=== PATIENT | male | born 1950 | race Caucasian/White ===

== ENCOUNTER 2020-02-18 08:09 | Outpatient (CLI) | payer MEDICARE, OTHER, SELFPAY ==
--- NOTE | ~2020-02-18 | US_ITS ---
EXAMINATION: US aorta [facility] DATE: 02/18/2020 09:01 INDICATION: Abdominal aortic aneurysm screening TECHNIQUE: Grayscale, color Doppler, and pulsed Doppler images of the aorta and common iliac arteries were obtained. COMPARISON: None. FINDINGS: The proximal aorta measures 2.1 cm. The mid aorta measures 1.7 cm. The distal aorta measures 1.2 cm. The right common iliac artery measures 13 mm. The left common iliac artery measures 9 mm. IMPRESSION: 1. Normal caliber abdominal aorta. Reviewed, dictated and finalized at location A.
== END 2020-02-18 08:10 | disposition home or self-care (01) ==
PROVIDERS: PCP Family Medicine; Visit Provider Physician Assistant
DX: Z13.6 Encounter for screening for cardiovascular disorders (principal)
CPT/HCPCS: 76706

== ENCOUNTER 2020-08-18 09:47 | Outpatient (CLI) | payer MEDICARE, OTHER, SELFPAY ==
[2020-08-18 10:33] LABS: Alanine Aminotransferase 32 U/L (4-50); Albumin Level 4.5 g/dL (3.5-5.1); Alkaline Phosphatase 67 U/L (38-126); Anion Gap 5 mmol/L (8-16); Aspartate Amino Transferase 37 U/L (17-59); Bilirubin,Total 0.9 mg/dL (0.2-1.3); Blood Urea Nitrogen 28 mg/dL (9-20); Calcium 9.5 mg/dL (8.4-10.2); Carbon Dioxide 31 mmol/L (22-30); Chloride 100 mmol/L (98-107); Estimated Glomerular Filt Rate 55; Glucose 103 mg/dL (75-110); Potassium 4.4 mmol/L (3.4-5.0); Sodium 136 mmol/L (137-145)
== END 2020-08-18 09:48 | disposition home or self-care (01) ==
LOC: ANHLAB 09:49
PROVIDERS: PCP Family Medicine; Visit Provider Physician Assistant
DX: I10 Essential (primary) hypertension (principal)
CPT/HCPCS: 36415; 80053

== ENCOUNTER → 2021-03-05 10:25 | Outpatient (CLI) | payer MEDICARE, OTHER, SELFPAY ==
--- NOTE | ~2021-03-05 | XR_ITS ---
EXAMINATION: XR finger 1st RT min 2V EXAM DATE: 03/05/2021 10:50 INDICATION: M79.646 - Pain in unspecified finger(s). Pt c/o pain in right 1st digit IP joint space, popping out of place on and off for 1 year, no trauma, no fx., no surg. TECHNIQUE: Right 1st finger frontal, lateral and oblique projections obtained and reviewed. There is no prior study for comparison. FINDINGS: There are no acute right 1st finger fractures or dislocations identified. There is no subc utaneous gas. The soft tissue is unremarkable. There are no radiopaque foreign bodies. There is i nterphalangeal and 1st metacarpophalangeal primary osteoarthritis. IMPRESSION: Mild osteoarthritis. Reviewed, dictated and finalized at location A. IMPRESSION: Mild osteoarthritis.
== END ==
PROVIDERS: PCP Family Medicine; Visit Provider Physician Assistant
DX: M19.041 Primary osteoarthritis, right hand (principal)
CPT/HCPCS: 73140

== ENCOUNTER 2022-08-06 03:42 | Day surgery (SDC) | payer MEDICARE, OTHER, SELFPAY ==
[2022-07-19 15:02] VITALS: BMI 30.9
--- NOTE | 2022-08-05 14:16 | PM.HPGS ---
History of Present Illness History of Present Illness Consent: Risks, benefits, and alternatives have been discussed and questions answered. Patient agrees to proceed with procedure. Chief complaint: neoplasm screening Narrative: Liborio Jean is a 72 year old male Referred for colon cancer screening. His last colonoscopy was 10 years ago. Review of Systems Review of Systems: All systems reviewed & are unremarkable except as noted in HPI and below PMFSH Past Medical History Medical History Essential (primary) hypertension Mixed hyperlipidemia Obesity Surgical History Surgical History H/O left inguinal hernia repair History of appendectomy Family History Family History Father Family history of elevated blood lipids Family history of coronary artery disease Mother Family history of malignant neoplasm of bone Social History Social History Years smoked: 35 Smoking status: Former smoker Second hand tobacco smoke exposure: No Smoking end date: 07/11/06 Alcohol intake: current Drinks per week: 4 Substance use: never Substance use type: does not use Living arrangements: with family Occupation/Education: occupation 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 Gender identity (if verbalized by the patient): Male Sexual Orientation (if Verbalized by the Patient): Straight or Heterosexual Meds Home Medications and Allergies Home Medications Medication Instructions Recorded Confirmed Type omeprazole 20 mg capsule,delayed See Rx Instructions .Route 05/10/22 08/06/22 Rx release .COMPLEX #90 caps simvastatin 40 mg tablet See Rx Instructions .Route 05/10/22 08/06/22 Rx .COMPLEX #90 tabs lisinopril 10 See Rx Instructions .Route 06/10/22 08/06/22 Rx mg-hydrochlorothiazide 12.5 mg .COMPLEX #90 tabs tablet Allergies Allergy/AdvReac Type Severity Reaction Status Date / Time prednisone Allergy Other Verified 08/06/22 06:27 Exam Const: General: alert Orientation/consciousness: patient oriented x3 Resp: Auscultation: clear to auscultation bilaterally Cardio: Rhythm: regular rhythm GI: GI Palp: Yes Soft to palpation and No Tenderness to palpation present (GI) Neuro: General: patient oriented x3 Assessment and Plan Assessment and plan (1) Colon cancer screening: Code(s): Z12.11 - Encounter for screening for malignant neoplasm of colon Status: Acute Assessment and Plan: Colonoscopy with possible biopsy or polypectomy or cautery or injection of substances.
--- NOTE | 2022-08-05 15:59 | P.PNAN_ITS ---
Anes - Initial Pre Proc Eval Procedure: Operation Date: 08/06/22 07:30 Proposed Procedures p Screening Colonoscopy - Madi Izquierdo MD Date/Time: 08/05/22 15:59 Surgeon: Madi Izquierdo MD Pre Op Diagnosis: neoplasm screening Patient Data Age: 72 Gender: M Height: 1.63 m Weight: 81.8 kg Allergies Allergy/AdvReac Type Severity Reaction Status Date / Time prednisone Allergy Other Verified 08/06/22 06:27 Home Medications Medication Instructions Recorded Confirmed Type omeprazole 20 mg capsule,delayed See Rx Instructions .Route 05/10/22 08/06/22 Rx release .COMPLEX #90 caps simvastatin 40 mg tablet See Rx Instructions .Route 05/10/22 08/06/22 Rx .COMPLEX #90 tabs lisinopril 10 See Rx Instructions .Route 06/10/22 08/06/22 Rx mg-hydrochlorothiazide 12.5 mg .COMPLEX #90 tabs tablet Patient hx anesthesia problems: none Family hx anesthesia problems: none Results Review: All pre-operative results and documents have been reviewed as part of the pre- operative evaluation. [facility] Past Medical History Medical History Essential (primary) hypertension Mixed hyperlipidemia Obesity Surgical History Surgical History H/O left inguinal hernia repair History of appendectomy Family History Family History Father Family history of elevated blood lipids Family history of coronary artery disease Mother Family history of malignant neoplasm of bone Social History Social History Years smoked: 35 Smoking status: Former smoker Second hand tobacco smoke exposure: No Smoking end date: 07/11/06 Alcohol intake: current Drinks per week: 4 Substance use: never Substance use type: does not use Living arrangements: with family Occupation/Education: occupation 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 Gender identity (if verbalized by the patient): Male Sexual Orientation (if Verbalized by the Patient): Straight or Heterosexual Anes - Eval Final PreProcedure Day of Procedure 08/05/22 15:59 Patient weight: obese Heart: regular rate and rhythm Lungs: clear to auscultation and normal air movement Airway: Mallampati scale class II Neurological: alert and oriented Last oral intake: >/= 8 hours ASA classification: III Emergent: no Anesthetic plan: proceed Anesthesia type and monitoring: general GIVS Results Review: All pre-operative results and documents have been reviewed as part of the pre- operative evaluation. Informed Consent: The patient's anesthetic plan and its attendant risks and benefits were discussed with the patient/family/POA. Questions were solicited and answers provided to the satisfaction of the patient/family/POA.
[2022-08-06 06:26] VITALS: BP 142/84; PULSE 72; RESP 18; TEMP 36.2; O2SAT 97
[2022-08-06] MEDS: LACTATED RINGERS 1,000 ML 150 ML IV CONT (06:39)
[2022-08-06] MEDS: SIMETHICONE ORAL SUSPENSION 20 MG/0.3 ML 30 ML BOTTLE 0.6 ML IRRIGATION (07:38)
[2022-08-06 07:51] VITALS: BP 105/64; PULSE 80; RESP 18; TEMP 36.2; O2SAT 97
[2022-08-06 08:01] VITALS: BP 127/83; PULSE 72; RESP 18; TEMP 36.2; O2SAT 100
[2022-08-06 08:11] VITALS: BP 131/80; PULSE 70; RESP 18; TEMP 36.2; O2SAT 100
== END 2022-08-06 08:17 | disposition home or self-care (01) ==
PROVIDERS: PCP Family Medicine; Visit Provider Internal Medicine Gastroenterology
PROC: 0DJD8ZZ Inspection of Lower Intestinal Tract, Via Natural or Artificial Opening Endoscopic (ICD-10-PCS; CPT 45378; principal; 2022-08-06 07:30)
DX: Z12.11 Encounter for screening for malignant neoplasm of colon (principal); K57.30 Diverticulosis of large intestine without perforation or abscess without bleeding; D12.3 Benign neoplasm of transverse colon; K64.8 Other hemorrhoids; E78.2 Mixed hyperlipidemia; I10 Essential (primary) hypertension; E66.9 Obesity, unspecified; Z68.30 Body mass index [BMI] 30.0-30.9, adult; Z87.891 Personal history of nicotine dependence
CPT/HCPCS: 45380; 88305; J2704; J7120

== ENCOUNTER 2022-11-22 08:21 | Outpatient (CLI) | payer MEDICARE, OTHER, SELFPAY ==
[2022-11-22 08:50] LABS: Hematocrit 45.3 % (42.0-52.0); Hemoglobin 15.1 g/dL (14.0-18.0); Mean Corpuscular HGB Conc 33.3 g/dl (32-36); Mean Corpuscular Hemoglobin 30.9 pg (26-34); Mean Corpuscular Volume 92.8 fl (80-100); Mean Platelet Volume 8.2 fl (7.4-10.4); Platelet Count Result 244 k/mm3 (150-375); Red Blood Count 4.88 M/mm3 (4.6-6.20); Red Cell Distribution Width 11.9 % (11.5-14.5); White Blood Count 6.5 K/mm3 (4.5-10.0)
[2022-11-22 08:57] LABS: Alanine Aminotransferase 35 U/L (6-50); Albumin Level 4.5 g/dL (3.5-5.1); Alkaline Phosphatase 66 U/L (38-126); Anion Gap 7 mmol/L (8-16); Aspartate Amino Transferase 33 U/L (17-59); Bilirubin,Total 0.8 mg/dL (0.2-1.3); Blood Urea Nitrogen 21 mg/dL (9-20); Calcium 9.2 mg/dL (8.4-10.2); Carbon Dioxide 32 mmol/L (22-30); Chloride 96 mmol/L (98-107); Cholesterol 196 mg/dL (0-200); Estimated Glomerular Filt Rate 60; Glucose 88 mg/dL (65-110); HDL Direct 54 mg/dL; Potassium 3.7 mmol/L (3.4-5.0); Sodium 135 mmol/L (137-145); Triglycerides 185 mg/dL (<150)
[2022-11-22 08:58] LABS: Appearance Urine Clear (Clear); Bilirubin Urine Negative (Negative); Blood Urine Negative (Negative); Color Urine Yellow (Yellow); Glucose Urine UA Negative (Negative); Ketones Urine Negative (Negative); Leukocyte Esterase Ur Negative LEU/UL (NEGATIVE); Nitrate Urine Negative (Negative); Protein Urine Negative (Negative); Specific Grav Ur 1.006 (1.001-1.035); Urobilinogen Urine 0.2 mg/dL (<2.0)
[2022-11-22 09:01] LABS: Hemoglobin A1C 5.6 % (<5.7)
[2022-11-22 09:08] LABS: LDL Cholesterol Direct 107 mg/dL
[2022-11-22 09:27] LABS: Add Urine Microscopic? NO
[2022-11-22 09:28] LABS: Prostate Specific Antigen 1.8 ng/mL (< OR = 4.0)
== END 2022-11-22 08:22 | disposition home or self-care (01) ==
PROVIDERS: PCP Family Medicine; Visit Provider Family Medicine
DX: E78.2 Mixed hyperlipidemia (principal); R73.01 Impaired fasting glucose; R35.1 Nocturia; I10 Essential (primary) hypertension
CPT/HCPCS: 36415; 80053; 80061; 81003; 83036; 84153; 84443; 85027

== ENCOUNTER 2023-06-01 11:37 | Outpatient (CLI) | payer MEDICARE, OTHER, SELFPAY ==
[2023-06-01 12:35] LABS: Basophils Percent Auto 0.5 % (0.2-1.2); Eosinophils Absolute Auto 0.1 K/mm3 (0-0.3); Eosinophils Percent Auto 0.6 % (0-4.4); Hemoglobin 14.2 g/dL (14.0-18.0); Immature Granulocyte Absolute 0.04 K/mm3 (0.00-0.031); Immature Granulocyte Percent A 0.5 % (0-0.5); Lymphocytes Percent Auto 10.4 % (18.3-44.2); Mean Corpuscular HGB Conc 32.3 g/dl (32-36); Mean Corpuscular Hemoglobin 30.5 pg (26-34); Mean Corpuscular Volume 94.4 fl (80-100); Mean Platelet Volume 8.3 fl (7.4-10.4); Monocytes Absolute Auto 0.8 K/mm3 (0.1-0.6); Monocytes Percent Auto 8.8 % (2.6-8.5); Neutrophils Absolute Auto 6.9 K/mm3 (1.3-6.7); Neutrophils Percent Auto 79.2 % (45.5-73.1); Platelet Count Result 220 k/mm3 (150-375); Red Blood Count 4.66 M/mm3 (4.6-6.20); Red Cell Distribution Width 11.8 % (11.5-14.5); White Blood Count 8.6 K/mm3 (4.5-10.0)
[2023-06-01 12:42] LABS: Alanine Aminotransferase 29 U/L (6-50); Albumin Level 4.5 g/dL (3.5-5.1); Alkaline Phosphatase 68 U/L (38-126); Anion Gap 13 mmol/L (8-16); Aspartate Amino Transferase 32 U/L (17-59); Bilirubin,Total 1.1 mg/dL (0.2-1.3); Blood Urea Nitrogen 28 mg/dL (9-20); Calcium 9.4 mg/dL (8.4-10.2); Carbon Dioxide 24 mmol/L (22-30); Chloride 99 mmol/L (98-107); Cholesterol 178 mg/dL (0-200); Estimated Glomerular Filt Rate 40; Glucose 96 mg/dL (65-110); HDL Direct 51 mg/dL; Sodium 136 mmol/L (137-145); Triglycerides 101 mg/dL (<150)
[2023-06-01 12:53] LABS: LDL Cholesterol Direct 93 mg/dL
[2023-06-01 13:11] LABS: Thyroid Stimulating Hormone 0.787 uIU/mL (0.465-4.680)
[2023-06-01 13:28] LABS: Appearance Urine Clear (Clear); Bacteria Urine None Seen /hpf; Bilirubin Urine Negative (Negative); Blood Urine Negative (Negative); Color Urine Yellow (Yellow); Glucose Urine UA Negative (Negative); Hyaline Casts Urine Present /lpf; Ketones Urine Trace mg/dL (Negative); Leukocyte Esterase Ur Negative LEU/UL (NEGATIVE); Need Manual Microscopic Reviewed; Nitrate Urine Negative (Negative); Non Pathogenic Casts >20; Protein Urine 1+ mg/dL (Negative); RBC Urine 0-2 /hpf (0-2); Specific Grav Ur 1.022 (1.001-1.035); Squamous Epithelial Cell Urine Moderate /hpf (Few); Urobilinogen Urine 0.2 mg/dL (<2.0); WBC Urine 0-5 /hpf (0-3); pH Urine 5.5 (5.0-9.0)
[2023-06-01 13:36] LABS: Add Urine Microscopic? YES
[2023-06-01 14:07] LABS: Hemoglobin A1C 5.5 % (<5.7)
== END 2023-06-01 11:38 | disposition home or self-care (01) ==
PROVIDERS: PCP Family Medicine; Visit Provider Family Medicine
DX: R35.1 Nocturia (principal); E78.2 Mixed hyperlipidemia; I10 Essential (primary) hypertension; R73.01 Impaired fasting glucose
CPT/HCPCS: 36415; 80053; 80061; 81001; 83036; 84153; 84443; 85025

== ENCOUNTER 2023-06-23 09:00 | Outpatient (CLI) | payer MEDICARE, OTHER, SELFPAY ==
[2023-06-23 09:39] LABS: Alanine Aminotransferase 26 U/L (6-50); Albumin Level 4.4 g/dL (3.5-5.1); Alkaline Phosphatase 65 U/L (38-126); Anion Gap 6 mmol/L (8-16); Aspartate Amino Transferase 29 U/L (17-59); Bilirubin,Total 0.8 mg/dL (0.2-1.3); Blood Urea Nitrogen 27 mg/dL (9-20); Calcium 9.2 mg/dL (8.4-10.2); Carbon Dioxide 31 mmol/L (22-30); Chloride 100 mmol/L (98-107); Estimated Glomerular Filt Rate 54; Glucose 98 mg/dL (65-110); Potassium 4.3 mmol/L (3.4-5.0); Sodium 137 mmol/L (137-145)
== END 2023-06-23 09:01 | disposition home or self-care (01) ==
PROVIDERS: PCP Family Medicine; Visit Provider Family Medicine
DX: R79.89 Other specified abnormal findings of blood chemistry (principal)
CPT/HCPCS: 36415; 80053

== ENCOUNTER 2023-11-16 15:08 | Outpatient (CLI) | payer MEDICARE, OTHER, SELFPAY ==
--- NOTE | ~2023-11-16 | XR_ITS ---
EXAMINATION: XR chest 2V DATE: 11/16/2023 15:21 INDICATION: Cough. TECHNIQUE: Frontal and lateral views of the chest were obtained. COMPARISON: Chest 2 views 02/10/2015 FINDINGS: There is no pneumonia, pleural effusion, or pneumothorax. The heart size is normal. IMPRESSION: 1. No acute cardiopulmonary disease. Reviewed, dictated and finalized at location A.
[2023-11-16 15:43] LABS: Basophils Percent Auto 0.3 % (0.2-1.2); Hematocrit 44.2 % (42.0-52.0); Hemoglobin 15.1 g/dL (14.0-18.0); Immature Granulocyte Absolute 0.05 K/mm3 (0.00-0.031); Immature Granulocyte Percent A 0.6 % (0-0.5); Lymphocytes Percent Auto 5.7 % (18.3-44.2); Mean Corpuscular HGB Conc 34.2 g/dl (32-36); Mean Corpuscular Hemoglobin 31.1 pg (26-34); Mean Corpuscular Volume 90.9 fl (80-100); Mean Platelet Volume 8.3 fl (7.4-10.4); Monocytes Absolute Auto 0.9 K/mm3 (0.1-0.6); Monocytes Percent Auto 10.2 % (2.6-8.5); Neutrophils Absolute Auto 7.3 K/mm3 (1.3-6.7); Neutrophils Percent Auto 83.2 % (45.5-73.1); Platelet Count Result 216 k/mm3 (150-375); Red Blood Count 4.86 M/mm3 (4.6-6.20); Red Cell Distribution Width 11.9 % (11.5-14.5); White Blood Count 8.7 K/mm3 (4.5-10.0)
[2023-11-16 16:25] LABS: Influenza A QL RT-PCR Negative (Negative); Influenza B QL RT-PCR Negative (Negative); RSV RNA, RT-PCR Negative (Negative); SARS-CoV-2 RNA PCR Negative (Negative)
== END 2023-11-16 15:09 | disposition home or self-care (01) ==
LOC: ANHIMG 15:10
PROVIDERS: PCP Family Medicine; Visit Provider Family Medicine
DX: R05.9 Cough, unspecified (principal); R50.9 Fever, unspecified
CPT/HCPCS: 36415; 71046; 85025; 87637

== ENCOUNTER 2023-11-17 11:21 | Outpatient (CLI) | payer MEDICARE, OTHER, SELFPAY ==
[2023-11-17 11:50] LABS: Appearance Urine Clear (Clear); Bacteria Urine None Seen /hpf; Bilirubin Urine Negative (Negative); Blood Urine Negative (Negative); Color Urine Yellow (Yellow); Glucose Urine UA Negative (Negative); Ketones Urine Negative (Negative); Leukocyte Esterase Ur Negative LEU/UL (Negative); Nitrate Urine Negative (Negative); Protein Urine Trace mg/dL (Negative); RBC Urine 0-2 /hpf (0-2); Specific Grav Ur 1.013 (1.001-1.035); Squamous Epithelial Cell Urine None Seen /hpf (Few); WBC Urine 0-5 /hpf (0-3)
[2023-11-17 11:54] LABS: Add Urine Microscopic? YES
== END 2023-11-17 11:22 | disposition home or self-care (01) ==
PROVIDERS: PCP Family Medicine; Visit Provider Family Medicine
DX: N39.0 Urinary tract infection, site not specified (principal)
CPT/HCPCS: 81001

== ENCOUNTER 2024-11-29 03:12 | Day surgery (SDC) | payer MEDICARE, OTHER, SELFPAY ==
[2024-11-28 15:32] VITALS: BMI 31.4
--- NOTE | 2024-11-28 15:47 | PC.NURSE ---
Report to the Outpatient Waiting Room, entrance under the green pavilion located off [facility], at time ___11:00AM____ on date __11/29/24 . Planned Procedure Time: __1:00PM .? Time changes happen often and if your time is changed the preop area will call you the afternoon before. - You and your visitor will be asked to self-screen and do not enter if you have any COVID symptoms. Please call surgeon if you need to reschedule. - A mask is optional within the hospital at this time. Patients may have clear liquids (water, carbonated beverages, clear teas, apple juice) until 3 hours prior to surgery (10:00AM) with a maximum of 20 ounces. - No food from midnight until time of surgery and no smoking, or chewing tobacco (or any form of nicotine). No chewing gum, candy or mints. Take only the following medications with a SIP of water on the morning of surgery: BACTRIM DO NOT STOP ANY OF YOUR OTHER PRESCRIPTION MEDICATIONS PRIOR TO SURGERY EXCEPT THE FOLLOWING Hold all vitamins and supplements for 3 days per anesthesiologist. Medications to discontinue per physician NONE Date to take last dose Please no make-up, nail macedonian, hairspray, perfume, deodorant, or body powder the day of surgery.? No jewelry (including any body piercings) or valuables the day of surgery, leave them at home.? Please take a shower or bath the night before, or the morning of, surgery with an antibacterial soap.? Wear comfortable, loose fitting clothing.? - Jewelry must be removed prior to entering the operating room.? Rings and piercings that are not removed may be cut off. - The hospital will not accept responsibility for valuables.? - Please leave all valuables, including medications, at home the day of surgery. If you are going home after surgery, a licensed peg driver must drive you home.? - NO public transportation without another adult if you receive anesthesia. - We recommend that an adult stay with you for 24 hours following discharge. - We also recommend that you do not drive, make important decision, drink alcoholic beverages, or take any drugs that were not prescribed by your health care provider for at least 24 hours after your discharge time. Follow any additional instructions given to you from your surgeon. Telephone instructions given to ____PATIENT and asked if any additional questions and then verbalized understanding. Patient advised to call surgeon office or pre surgery nurse liaison [phone] if any additional questions.
[2024-11-29] VITALS (8 sets, daily range): BP systolic 130–147; BP diastolic 59–79; PULSE 60–80; RESP 15–21; TEMP 36.4–36.8; O2SAT 94–99
--- NOTE | ~2024-11-29 | XR_ITS ---
EXAMINATION: XR chest 1V portable 11/29/2024 14:50 INDICATION: Cough PROCEDURE: AP portable chest COMPARISON: Comparison to multiple prior studies sequentially, with oldest reviewed study dated 2014. FINDINGS: The lungs are clear. The cardiomediastinal silhouette is within normal limits. There are no pleural effusions. There is no pneumothorax suspected. IMPRESSION: 1: NO ACUTE CARDIOPULMONARY DISEASE. Reviewed, dictated and finalized at location B.
--- NOTE | 2024-11-29 11:10 | ECG_ITS ---
Test Date: 2024-11-29 11:23:33 Measurements Intervals [place] Rate: 63 P: 32 GA: 188 QRS: 25 QRSD: 150 T: 1 QT: 447 QTc: 459 Interpretive Statements SINUS RHYTHM INDETERMINATE AXIS RIGHT BUNDLE BRANCH BLOCK [120+ ms QRS DURATION, UPRIGHT V1, 40+ ms S IN I/aVL/V4/V5/V6] No previous ECG available for comparison Electronically Signed On 11-29-2024 14:12:18 CDT by Giuseppe Grigsby M.D.
[2024-11-29 12:04] LABS: Anion Gap 10 mmol/L (4-12); Blood Urea Nitrogen 30 mg/dL (9-20); Calcium 8.9 mg/dL (8.4-10.2); Carbon Dioxide 25 mmol/L (22-30); Chloride 98 mmol/L (98-107); Estimated CRCL calculation 40 ml/min; Estimated Glomerular Filt Rate 48; Glucose 88 mg/dL (65-110); Potassium 4.2 mmol/L (3.4-5.0); Sodium 133 mmol/L (137-145)
--- NOTE | 2024-11-29 12:38 | WPDANESEPPF ---
Anes - Initial Pre Proc Eval Procedure: Operation Date: 11/29/24 13:00 Proposed Procedures p Incision and Drainage of Left Buttock Abscess - Samuel Fairchild MD Date/Time: 11/29/24 12:38 Surgeon: Samuel Fairchild MD Pre Op Diagnosis: left buttock abscess Patient Data Age: 74 Gender: M Height: 1.63 m Weight: 83.1 kg Last Vital Signs Temp 36.4 C 11/29/24 11:56 Pulse 80 11/29/24 11:56 Resp 16 11/29/24 11:56 BP 147/74 H 11/29/24 11:56 Pulse Ox 99 11/29/24 11:56 O2 Del Method Room Air 11/29/24 11:56 Allergies Allergy/AdvReac Type Severity Reaction Status Date / Time prednisone AdvReac ELEVATED BP Verified 11/29/24 12:03 Home Medications ?Medication ?Instructions ?Recorded ?Confirmed ?Type omeprazole 20 mg capsule,delayed See Rx Instructions .Route 03/07/24 11/28/24 Rx release .COMPLEX #90 caps lisinopril 10 See Rx Instructions .Route 05/30/24 11/28/24 Rx mg-hydrochlorothiazide 12.5 mg .COMPLEX #90 tabs tablet simvastatin 40 mg tablet See Rx Instructions .Route 11/05/24 11/28/24 Rx .COMPLEX #90 tabs sulfamethoxazole 800 1 tablet PO Q12H 10 days #20 tabs 11/28/24 11/29/24 Rx mg-trimethoprim 160 mg tablet (Bactrim DS) Laboratory Tests 11/29/24 11:48 Sodium 133 L mmol/L (137-145) Potassium 4.2 mmol/L (3.4-5.0) Chloride 98 mmol/L (98-107) Carbon Dioxide 25 mmol/L (22-30) Anion Gap 10 mmol/L (4-12) BUN 30 H mg/dL (9-20) Creatinine 1.45 H mg/dL (0.7-1.3) Estim Creat Clear Calc 40 ml/min Estimated GFR 48 L (59 - ) Glucose 88 mg/dL (65-110) Calcium 8.9 mg/dL (8.4-10.2) Patient hx anesthesia problems: none Family hx anesthesia problems: none Results Review: All pre-operative results and documents have been reviewed as part of the pre-operative evaluation. [facility] Past Medical History Medical History Obesity Mixed hyperlipidemia Essential (primary) hypertension Surgical History Surgical History H/O left inguinal hernia repair History of appendectomy Family History Family History Father Family history of elevated blood lipids Family history of coronary artery disease Mother Family history of malignant neoplasm of bone Social History Social History Years smoked: 35 Smoking status: Former smoker Second hand tobacco smoke exposure: No Smoking end date: 07/11/06 Alcohol intake: current Drinks per week: 4 Substance use: never Substance use type: does not use Living arrangements: with family Occupation/Education: occupation 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 Gender identity (if verbalized by the patient): Male Sexual Orientation (if Verbalized by the Patient): Straight or Heterosexual Anes - Eval Final PreProcedure Day of Procedure 11/29/24 12:38 Patient weight: obese Heart: regular rate and rhythm Lungs: clear to auscultation Airway: Mallampati scale class II Neurological: alert and oriented Last oral intake: >/= 8 hours ASA classification: III Emergent: no Anesthetic plan: proceed Anesthesia type and monitoring: general LMA and standard monitoring Results Review: All pre-operative results and documents have been reviewed as part of the pre-operative evaluation. Informed Consent: The patient's anesthetic plan and its attendant risks and benefits were discussed with the patient/family/POA. Questions were solicited and answers provided to the satisfaction of the patient/family/POA.
--- NOTE | 2024-11-29 13:07 | WPDHPUPDATE1 ---
History and Physical Update Update Date/Time: 11/29/24 13:07 History and Physical has been reviewed, including an updated exam of the patient. There are NO changes in the patient's condition. Risks, benefits, and alternatives have been discussed and questions answered. Patient agrees to proceed with procedure.
[2024-11-29] MEDS: LACTATED RINGERS 1,000 ML 30 ML IV CONT ×2 (13:10→14:19)
[2024-11-29] MEDS: BUPivacaine HCL 0.5% PF 30 ML VIAL INFILTRATE (13:23)
[2024-11-29] MEDS: LIDO 1%/EPINEPHRINE 1:100,000 50 ML VIAL 20 ML INFILTRATE (13:23)
[2024-11-29] MEDS: ceFAZolin 2 GM/D5W 50 ML 2 GM/50 ML BAG IVPB (13:23)
--- NOTE | 2024-11-29 14:17 | W.PM.PROC2 ---
Procedure Note - Detailed Date of Procedure 11/29/24 Pre-op Diagnosis Left buttock abscess Post-op Diagnosis Same Procedure Performed Incision and drainage of left buttock abscess Surgeon Samuel Fairchild MD Medical Coordinator Pesticide Use KRYSTIAN Dewey-student Anesthesia General Indications Patient is a 74-year-old gentleman presented my office yesterday with complaints of worsening redness and drainage from an infected area is mid left buttock region. He recently returned from a trip out of the country and thought he might have been bitten by a spider. He actually thought he started having some pain redness before he started his trip. Indicates he has developed a subcutaneous abscess in the mid left buttock region. Presents now for incision and drainage of the abscess. Findings The midportion of the left buttock there was a 4 to 5 cm abscess with induration and erythema with a central area of about 2.5cm of fluctuance draining pus. Minimal necrotic tissue was noted. Description of Procedure After informed consent was obtained patient brought to the operating room was placed under general endotracheal anesthesia. He actually had some emesis when he was turned on his side with induction of anesthesia and this was quickly suctioned and he was then turned on back onto his back and then endotracheally intubated. Once adequate endotracheal anesthesia was achieved he was then turned back on his right lateral decubitus position and all the pressure points were well padded. The area the left mid buttock region was then prepped and draped usual sterile fashion. 1% lidocaine mixed with 0.5% Marcaine was injected around the area for local anesthetic effect. Over the center of the area of induration and fluctuance a cruciate incision was then made with a # 11 blade scalpel. There was prompt drainage approximately 5 to 10 cc of pus. I then placed my finger into the abscess cavity broke down the loculations. It did not seem to tunnel any significant direction. I then irrigated out the abscess cavity sterile saline solution after obtaining a culture swab which was sent to microbiology for Gram stain and aerobic and anaerobic cultures. Once the wound had been irrigated and hemostasis was achieved electrocautery. I then packed the wound tightly with quarter-inch iodoform gauze. There is then cleaned and then sterile dressing to include 4x4 gauze ABD pad and Medipore tape was used. The patient tolerated the procedure well no complications. All sponges, needles, and instrument counts were correct at the end procedure. EBL was _10__cc. The patient was awakened and taken to recovery in stable and satisfactory condition. Implants None Estimated Blood Loss 10 Drains No Packing Yes (Approximately 2ft of quarter-inch iodoform gauze left buttock wound) Pathology Other (Left buttock abscess culture swab sent to microbiology) Complications No immediate complications Condition Stable Disposition PACU [facility] Billing Surgery - Charge Forward: Surgery Billing
--- NOTE | 2024-11-29 16:15 | SUR.PHASEII ---
Vitals are stable. Patient is unhooked from the monitors and waiting for ride.
== END 2024-11-29 16:16 | disposition home or self-care (01) ==
PROVIDERS: Anesthesiology; PCP Family Medicine; Visit Provider Surgery
PROC: (CPT 10060; principal; 2024-11-29 13:00)
DX: L02.31 Cutaneous abscess of buttock (principal); Z87.891 Personal history of nicotine dependence; E66.9 Obesity, unspecified; Z68.31 Body mass index [BMI] 31.0-31.9, adult
CPT/HCPCS: 10060; 36415; 71045; 80048; 87070; 87075; 87181; 87205; 93005; A9270; J0330; J0690; J1100; J2003; J2004; J2250; J2405; J2704; J3010; J7120